=== PATIENT | female | born 1950 | race Caucasian/White ===

== ENCOUNTER → 2019-11-03 | Outpatient (CLI) | payer MEDICARE ==
[2014-10-06 19:55] VITALS: BP 112/61
--- NOTE | 2019-11-03 13:41 | RAD ---
Exam: VENOUS LOWER EXTREMITY LEFT Indication: Left lower extremity pain, positive Homans sign Technique: Color-flow and pulsed wave duplex ultrasound with compression of venous structures of the left lower extremity. Comparison: None Available. Findings: Duplex ultrasound with compression of the deep venous structures of the left lower extremity from the common femoral vein through the popliteal vein is negative for DVT. The posterior tibial and peroneal veins are segmentally visualized and patent where seen. Normal venous waveforms and augmentation are noted throughout. Impression: No evidence for DVT in the left lower extremity. No focal abnormality identified in the left lower extremity calf, region of pain indicated by the patient. Electronically signed by: Trevor Rodriguez MD (11/03/2019 1:38 PM) SIRIS[facility]
== END ==
LOC: US 11:35
PROVIDERS: ATTEND Registered Nurse
DX: M79.605 Pain in left leg (principal)
CPT/HCPCS: 93971

== ENCOUNTER → 2021-03-02 | Outpatient (CLI) | payer MEDICARE ==
[2014-10-06 19:55] VITALS: BP 112/61
--- NOTE | 2021-03-02 15:19 | KCIC ---
Bilateral inguinal ultrasound without comparison for left humeral pain. TECHNIQUE: Real-time grayscale and color Doppler evaluation of both inguinal canals is performed. The re is no evidence of hernia. No mass or fluid question is identified. On the left, there are some mariah ign-appearing morphologically normal lymph nodes for which no additional follow-up is required. IMPRESSION: 1. No sonographically discernible abnormality of either inguinal canal. Electronically signed by: Frandy Plummer MD (03/02/2021 3:16 PM) [id number]
== END ==
LOC: KCIC US 14:31
PROVIDERS: ATTEND Orthopaedic Surgery
DX: R10.32 Left lower quadrant pain (principal)
CPT/HCPCS: 76881

== ENCOUNTER → 2021-04-06 | Outpatient (CLI) | payer MEDICARE ==
[2014-10-06 19:55] VITALS: BP 112/61
[~2021-04-06] MED LIST: ATOR10TA60 PO; IOHEXOL 240 MG/ML 50ML VIAL. PO ONE; IOHEXOL 300 MG/ML 100ML VIAL. IV ONE; LEVO25TA4 PO; LOSA1TAB25 PO; METF500T16 PO; METO-239 PO; OMEP20CA16 PO
--- NOTE | 2021-04-06 15:14 | KCIC ---
Exam: CT abdomen/pelvis with intravenous contrast Indication: Pain in left and right hip. Radiating from the groin to back. Evaluate for inguinal herni as. Comparison: Bilateral inguinal ultrasound 03/02/2021 Technique: Helical CT imaging performed of the abdomen and pelvis after the intravenous administratio n of 100 mL Omnipaque 300 contrast. Sagittal and coronal reformats were obtained. One or more of the following individualized dose reduction techniques were utilized for this examinat ion: 1. Automated exposure control 2. Adjustment of the mA and/or kV according to patient size 3. Use of iterative reconstruction technique. Findings: Lower chest: Lung bases are clear. The heart is normal in size. Liver: Liver is normal size. No focal lesion. There hepatic steatosis. Gallbladder/Biliary Tree: Gallbladder is not visualized. Bile ducts are normal. Pancreas: Normal. Spleen: There are calcified splenic granulomas. No splenomegaly. Adrenal Glands: Normal. Kidneys/Ureters/Bladder: The kidneys are normal in size and enhance symmetrically. There are probable left peripelvic cysts and a few other subcentimeter hypodensities in the left kidney, likely simple cysts but too small to characterize. No hydronephrosis. Ureters and bladder are normal. Reproductive Organs: Uterus is surgically absent. No adnexal mass. Stomach, small bowel, and colon: Stomach is normal. There is no small bowel obstruction. There is sig moid diverticulosis without acute diverticulitis. Vasculature: Abdominal aorta is normal in caliber. Minimal scattered calcifications. Lymph Nodes: No lymphadenopathy. Peritoneum and retroperitoneum: No free fluid or free air. Bones: No acute osseous abnormality. Mild degenerative disc disease. Miscellaneous: No abdominal wall or inguinal hernia. Impression: 1. No inguinal hernia or other acute abnormality. 2. Sigmoid diverticulosis. 3. Hepatic steatosis. Electronically signed by: Luz Salazar MD (04/06/2021 3:12 PM) [facility]
== END ==
LOC: KCIC CT 12:23
PROVIDERS: ATTEND Orthopaedic Surgery
DX: K57.30 Diverticulosis of large intestine without perforation or abscess without bleeding (principal); K76.0 Fatty (change of) liver, not elsewhere classified; Z90.710 Acquired absence of both cervix and uterus; M25.551 Pain in right hip; M25.552 Pain in left hip
CPT/HCPCS: 74177; 82565; Q9966; Q9967